=== PATIENT | male | born 1980 | race Caucasian/White ===

== ENCOUNTER 2019-06-02 04:19 | Emergency (ER) | payer MEDICARE, OTHER ==
[~2019-06-02] VITALS: Ht 177.8 cm; Wt 77.6 kg
--- NOTE | 2019-06-02 04:28 | NUR ---
PT BIBRA 62 FOR EVALUATION OF R POSTERIOR JIMENEZ LACERATION LENGTH 5 WIDTH 2. BLEEDING CONTROLLED. PT AAOX4, VSS, RR EVEN AND UNLABORED ON RA W/ AND NOTED.
[2019-06-02] MEDS ORDERED: LIDOCAINE 1%-EPI 1:100,000 20 ML VIAL TP ONE (04:30)
[2019-06-02] MEDS ORDERED: SODIUM BICARBONATE 5 ML VIAL MC ONE (04:30)
[2019-06-02] MEDS ORDERED: CEPHALEXIN MONOHYDRATE 500 MG CAPSULE PO ONE ×2 (04:30→04:35)
[2019-06-02] MEDS ORDERED: TDAP [DIPH/PERTUSSIS/TET] 0.5 ML VIAL IM ONE ×2 (04:30→04:36)
[2019-06-02] MEDS ORDERED: LIDOCAINE 1%-EPI 1:100,000 20 ML VIAL ONE (04:34)
[2019-06-02] MEDS ORDERED: SODIUM BICARBONATE 5 ML VIAL ONE (04:34)
--- NOTE | 2019-06-02 04:40 | NUR ---
XRAY AT BEDSIDE
[2019-06-02] MEDS ORDERED: ONDANSETRON 4 MG TAB.RAPDIS SL ONE (05:00)
[2019-06-02] MEDS ORDERED: oxyCODONE/APAP (5/325 MG) 1 UDTAB TABLET PO ONE (05:00)
[2019-06-02] MEDS ORDERED: ONDANSETRON 4 MG TAB.RAPDIS ONE (05:02)
[2019-06-02] MEDS ORDERED: oxyCODONE/APAP (5/325 MG) 1 UDTAB TABLET ONE (05:02)
[2019-06-02 05:19] VITALS: BP 134/105
--- NOTE | 2019-06-02 05:19 | NUR ---
Patient discharged to home in stable condition. Written and verbal after care instructions given. Patient verbalizes understanding of instruction.ambulatory with a steady gait
== END 2019-06-02 05:19 | disposition home or self-care (01) ==
LOC: ER 04:26
DX: S81.811A Laceration without foreign body, right lower leg, initial encounter (principal); S60.512A Abrasion of left hand, initial encounter; S60.511A Abrasion of right hand, initial encounter; Z88.2 Allergy status to sulfonamides; Z88.1 Allergy status to other antibiotic agents; W22.8XXA Striking against or struck by other objects, initial encounter; Y93.89 Activity, other specified; Y92.89 Other specified places as the place of occurrence of the external cause; Y99.8 Other external cause status
CPT/HCPCS: 12002; 73590; 90471; 90715; 99284; J3490 ×2; Q0162